=== PATIENT | male | born 1990 | race African-American/Black ===

== ENCOUNTER 2016-08-16 13:12 | Emergency (ER) | payer OTHER ==
[2016-08-16] MEDS ORDERED: Iopamidol 612 MG/ML 150 ML Bottle IVPUSH ONE (13:31)
[2016-08-16] MEDS ORDERED: Sodium Chloride 0.9% 10 ML Syringe FLUSH PRN (13:31)
--- NOTE | 2016-08-16 14:10 | CT ---
CT cervical spine Technique: Multiple axial sections were obtained from above C2 inferiorly to the top of T2. Reconstructed sagittal and coronal images were reviewed. Comparison: No previous cervical spine imaging. Findings: Mastoid sinuses and middle ear cavities are clear. Posterior skull base is intact. Vertebral body heights and disc spaces are preserved. Vertebral bodies and posterior arches are intact. No fracture is seen. No abnormal subluxation is seen on the reconstructed sagittal images. Small bony density is seen off the posterior lateral mass on the right side at C5. This is believed to be a small developmental anomaly. No abnormal subluxation is seen. Impression: 1. Incidental finding as noted above. Nothing acute is identified on CT study of the cervical spine. Diagnostic code #2
--- NOTE | 2016-08-16 14:11 | CT ---
Head CT Technique: Multiple axial sections through the brain were obtained. Intravenous contrast was not utilized. Comparison: No previous intracranial imaging. Findings: Increased density is seen near the edge of the tentorium of the cerebellum believed to represent normal blood within the dural sinuses. I do not see anything to indicate intracranial hemorrhage. Ventricles along with basal cisterns and sulci over the convexities are within normal limits for the patient's age. No abnormal parenchymal densities are seen. No evidence of intracranial hemorrhage. No midline shift or mass effect is seen. Bone window settings were reviewed which shows no discrete calvarial abnormality. Visualized sinuses are clear. Impression: 1. No acute intracranial abnormality is identified on noncontrast head CT study. Diagnostic code #1
--- NOTE | 2016-08-16 14:18 | CT ---
CT chest Technique: Multiple axial sections through the chest were obtained. Intravenous contrast was utilized. Comparison: No previous study. Findings: Mediastinum and hilar regions appear within normal limits. No pericardial thickening is seen. No chest wall abnormality is identified. No axillary adenopathy is seen. No discrete rib fracture is appreciated. Vertebral body heights are maintained within the thoracic spine. Sternum appears intact on the reconstructed sagittal images. Lungs are clear. No pleural effusions or pneumothorax is seen. Impression: 1. No abnormality is identified on CT study of the chest. Diagnostic code #1 CT abdomen and pelvis Technique: Multiple axial sections were obtained from above the dome of the diaphragm inferiorly through the pubic symphysis. Intravenous contrast was utilized. No oral contrast has been given. Comparison: No previous study. Findings: Liver is unremarkable. Spleen appears normal. Kidneys show symmetric contrast enhancement. No renal laceration is seen. Incidental cyst is noted within the left kidney measuring 1.3 cm. Pancreas is within normal limits. Adrenal glands show no nodule. Gallbladder shows no calcified gallstones. Aorta shows no aneurysmal dilatation. No retroperitoneal adenopathy or mesenteric abnormalities are seen. No pelvic mass or adenopathy is seen. No free fluid is identified. Mild increased stool is seen within the colon. Appendix is not definitely appreciated. No free fluid is seen. Bone window settings shows no discrete fracture within the lumbar spine. No fracture appreciated within the pelvis or within either hip. Impression: 1. Incidental renal cyst on the left side. 2. No acute abnormality is identified on CT study of the abdomen and pelvis. Diagnostic code #2
[2016-08-16] MEDS ORDERED: HYDROmorphone 1 MG/ML Syringe IVPUSH ONE (15:05)
[2016-08-16] MEDS ORDERED: Lidocaine 2% Jelly 10 ML Urojet MUCMEM ONE (15:05)
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
[2016-08-16 16:49] VITALS: BP 140/81
--- NOTE | 2016-08-17 07:02 | CR ---
Right hand: Four views of the right hand were obtained as well as coned-down view of the right thumb. Comparison: No previous hand exam. Fracture is identified within the proximal first metacarpal. Two pins cross the fracture line. No bridging callus is seen. Joint spaces are preserved. No additional fracture or other abnormality is appreciated. Impression: 1. Fracture showing fixation pins involving the base of the first metacarpal. No bridging callus is seen. 2. No additional abnormality is seen on right hand study. Diagnostic code #2
== END 2016-08-16 16:35 | disposition home or self-care (01) ==
LOC: JD.ED 13:12
PROC: 2W3CX1Z Immobilization of Right Lower Arm using Splint (ICD-10-PCS; principal; 2016-08-16)
DX: S00.81XA Abrasion of other part of head, initial encounter (principal); S40.812A Abrasion of left upper arm, initial encounter; S40.811A Abrasion of right upper arm, initial encounter; S80.812A Abrasion, left lower leg, initial encounter; S80.811A Abrasion, right lower leg, initial encounter; S06.0X0A Concussion without loss of consciousness, initial encounter; S01.511A Laceration without foreign body of lip, initial encounter; V86.59XA Driver of other special all-terrain or other off-road motor vehicle injured in nontraffic accident, initial encounter
CPT/HCPCS: 29125; 36415; 70450; 71260; 72125; 73130; 74177; 80053; 85025; 96374; 99285; J1170; J7050; Q9967